=== PATIENT | female | born 1970 | race American Indian/Alaskan Native ===

== ENCOUNTER 2018-01-08 06:02 | Day surgery (SDC) | payer BC, OTHER ==
[~2018-01-08 06:02] MED LIST: NACL 0.9% IR ONE
[2018-01-08] MEDS ORDERED: NACL BACTERIOSTATIC INFILTRATI ONE (06:42)
[2018-01-08] MEDS ORDERED: ZOFRAN ONE (07:14)
[2018-01-08] MEDS ORDERED: XYLOCAINE MPF 2% ONE (07:14)
[2018-01-08] MEDS ORDERED: ANCEF/STERILE WATER 2 GM/20 ML IV NR (07:30)
[2018-01-08] MEDS ORDERED: NACL 0.9% 1000 ML 1,000 ML ONE (07:33)
[2018-01-08] MEDS ORDERED: XYLOCAINE 1% 20 mL ONE (07:34)
[2018-01-08] MEDS ORDERED: MARCAINE 0.25% INFILTRATI ONE ×2 (07:34→08:16)
[2018-01-08] MEDS ORDERED: DIPRIVAN 10 MG/ML IV ONE (08:01)
[2018-01-08] MEDS ORDERED: DILAUDID ONE (08:12)
[2018-01-08] MEDS ORDERED: XYLOCAINE 1% 20 mL INFILTRATI ONE (08:16)
--- NOTE | 2018-01-08 08:16 | Anesthesia Day of Surgery ---
Anesthesia Day of Surgery - Day of Surgery Patient Examined: Yes Patient H&P Reviewed: Yes Patient is NPO: Yes
[2018-01-08] MEDS ORDERED: SUBLIMAZE IV PRN (08:17)
[2018-01-08] MEDS ORDERED: ZOFRAN IV PRN (08:17)
[2018-01-08] MEDS ORDERED: DILAUDID IV PRN (08:17)
--- NOTE | 2018-01-08 08:17 | Anesthesia Consultation ---
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
[2018-01-08] MEDS ORDERED: NACL 0.9% IR ONE (08:43)
[2018-01-08] MEDS ORDERED: NACL 0.9% 1000 ML 1,000 ML IV SCH (09:00)
--- NOTE | 2018-01-08 09:12 | Short Stay Summary ---
Short Stay Documentation Date of service: 01/08/18 - History H&P: obtained from office - Allergies and Medications Current Medications: Allergies No Known Allergies Allergy (Verified 01/07/18 11:38) Home Medications Medication Instructions Recorded Confirmed Last Taken Type Amlodipine Bes/Olmesartan Med 1 each PO DAILY 01/07/18 01/08/18 01/08/18 History [Nik 10-40 mg Tablet] Hydrochlorothiazide [Hctz] 12.5 mg PO QDAY 01/07/18 01/08/18 01/08/18 History clonazePAM [Klonopin] 1 mg PO DAILY 01/07/18 01/08/18 01/08/18 History Active Medications Cefazolin Sodium (Ancef/Sterile Water 2 Gm/20 Ml) 2 gm IV PREOP NR Stop: 01/08/18 21:00 Fentanyl (Sublimaze) 50 mcg IV Q5MIN PRN PRN Reason: Pain , Severe (7-10) Stop: 01/08/18 18:00 Hydromorphone HCl (Dilaudid) 0.25 mg IV Q10MIN PRN PRN Reason: Pain, Moderate (4-6) Stop: 01/08/18 18:00 Sodium Chloride (Nacl 0.9% 1000 Ml) 1,000 mls @ 100 mls/hr IV DIRECT IVIS Ondansetron HCl (Zofran) 4 mg IV ONCE PRN PRN Reason: Nausea And Vomiting Stop: 01/08/18 18:00 - Brief post op/procedure progress note Date of procedure: 01/08/18 Pre-op diagnosis: 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 Post-op diagnosis: same Procedure: Right breast fibroadenoma excisional biopsy Anesthesia: GETA Findings: Known right breast fibroadenoma at the 11:00 position 11 cm from the nipple Surgeon: KJ ESPOSITO Estimated blood loss: minimal Pathology: list (right fibroadenoma) Specimen disposition: to lab Condition: stable - Disposition Condition at discharge: Good Disposition: - TO HOME OR SELFCARE Short Stay Discharge Plan Activity: other (no heavy lifting) Diet: regular Wound: other (keep incision clean and dry; may shower in 24 hours; no baths, pools or lakes) Follow up with: ARSEN TOWNSEND MD [Primary Care Provider] - 7 Days KJ ESPOSITO MD [Staff Physician] - 7 Days Prescriptions: HYDROcodone/APAP 5-325 [[place] 5/325] 1 each PO Q6HR PRN #25 tablet PRN Reason: Pain
--- NOTE | 2018-01-08 09:17 | Operative Report ---
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 Findings: Known right breast fibroadenoma at the 11 o'clock position 11 cm from the nipple Complications: None Drains: None Estimated blood loss: Minimal Disposition: PACU in good condition Indication for operative procedure: This is a 47-year-old lady with known right breast fibroadenoma. Recommendations were to proceed with right breast excisional biopsy of fibroadenoma at the 11:00 position given increase in size. Patient wished to proceed with the above procedure. The patient was procedure in detail: The patient was taken to the operating room and was laid supine. General anesthesia was administered. The right breast fibroadenoma was palpable at the 11 o'clock position 11 cm from the nipple, ultrasound used as well. Right breast was prepped and draped in the normal sterile operative fashion. Timeout was performed. A right lateral breast incision was made with a 15 blade knife with dissection taken down to the subcutaneous tissues. The fibroadenoma was encountered and was dissected free with the aid of the Bovie cautery. The specimen was sent to pathology. Hemostasis was then obtained using the Bovie cautery. The breast cavity was irrigated and suctioned. Breast cavity was anesthesized with 1% lidocaine mixed with quarter percent Marcaine. The deep breast tissues were approximated and closed using interrupted 3-0 Vicryl and skin brought together and closed using a running 4-0 Monocryl followed by skin affix. She tolerated surgery very well and was awakened from anesthesia without any complication and transported to PACU in good condition.
[2018-01-08] MEDS ORDERED: NORCO 5/325 PO NR (10:00)
--- NOTE | 2018-01-08 10:00 | Post Anesthesia Evaluation ---
- Post Anesthesia Evaluation Patient Participated: Yes Airway Patent: Yes Stable Respiratory Function: Yes Nausea/Vomiting: No Temp > 96.8F: Yes Pain Manageable: Yes Adequeate Hydration: Yes Anesthesia Complications: No Block Receding Appropriately: Not Applicable (2030)
[2018-01-08 11:00] VITALS: BP 136/91
[2018-01-08] MEDS ORDERED: PEPCID IV NR (11:23)
== END 2018-01-08 10:47 | disposition home or self-care (01) ==
LOC: OR 06:02
PROVIDERS: ATTEND Surgery
DX: D24.1 Benign neoplasm of right breast (principal); I10 Essential (primary) hypertension
CPT/HCPCS: 19120; 88305; J0690; J1170; J2405; J2704; J7030